=== PATIENT | male | born 1955 | race Caucasian/White ===

== ENCOUNTER 2017-09-06 12:06 | Inpatient (IN) | payer MEDICARE, MEDICAID ==
[~2017-09-06] VITALS: Ht 162.6 cm; Wt 91.2 kg
[2017-09-06 12:49] LABS: APPEARANCE CLEAR (CLEAR); BILIRUBIN NEGATIVE (NEGATIVE); COLOR YELLOW (YELLOW); GLUCOSE NEGATIVE (NEGATIVE); KETONE NEGATIVE (NEGATIVE); NITRITE NEGATIVE (NEGATIVE); PROTEIN NEGATIVE (NEGATIVE); SPECIFIC GRAVITY 1.015 (1.005-1.020); UROBILINOGEN NORMAL (NORMAL)
[2017-09-06 13:23] LABS: BASOPHILS 0.5 % (0-2); EOSINOPHILS 4.3 % (0-7); HEMATOCRIT 34.4 % (42.0-54.0); HEMOGLOBIN 11.6 g/dL (13.5-17.5); IMMATURE GRANULOCYTES 0.1 % (0-5); MCH 32.6 pg (26.0-34.0); MCHC 33.7 g/dL (31.0-37.0); MCV 96.6 fL (80.0-100.0); MEAN PLATELET VOLUME 10.3 fL (7.4-10.4); MONOCYTES 5.9 % (2-11); NEUTROPHILS 69.2 % (40-80); PLATELET COUNT 247 10x3/uL (130-400); RBC 3.56 10x6/uL (4.20-6.10); RDW 13.8 % (11.5-14.5); WBC 8.6 10x3/uL (4.8-10.8)
[2017-09-06 13:47] LABS: ALBUMIN 3.3 g/dL (3.4-5.0); ALKALINE PHOSPHATASE 46 U/L (46-116); ALT (SGPT) 25 U/L (10-68); BILIRUBIN - TOTAL 0.31 mg/dL (0.2-1.3); CALC OSMOLALITY 275 mosm/kg (275-300); CALCIUM 9.4 mg/dL (8.5-10.1); CARBON DIOXIDE 30.5 mmol/L (21.0-32.0); CHLORIDE - SERUM 100 mmol/L (98-107); CREATININE - SERUM 1.5 mg/dL (0.6-1.3); POTASSIUM - SERUM 3.9 mmol/L (3.5-5.1); SODIUM 136 mmol/L (136-145); UREA NITROGEN 28 mg/dL (7-18); eGFR NON AFRICAN AMERICAN 51 mL/min (90-120)
[2017-09-06 13:50] LABS: GLUCOSE 70 mg/dL (74-106)
[2017-09-06 13:52] LABS: AMYLASE - SERUM 113 U/L (25-115); LIPASE 756 U/L (73-393); TROPONIN-I < 0.017 ng/mL (0.000-0.060)
[2017-09-06] MEDS ORDERED: CIPRO500 MG PO (17:57)
[2017-09-06] MEDS ORDERED: ALDACTONE50 MG PO (17:58)
[2017-09-06] MEDS ORDERED: POT CHLORIDE TAB 20M PO (17:58)
[2017-09-06] MEDS ORDERED: LISINOPRIL2.5 MG PO (17:59)
[2017-09-06] MEDS ORDERED: TRICOR145 MG PO (17:59)
[2017-09-06] MEDS ORDERED: GLIMEPIRIDE 4 MG PO (17:59)
[2017-09-06] MEDS ORDERED: FUROSEMIDE40 MG PO (18:00)
[2017-09-06] MEDS ORDERED: ELAVIL25 MG PO (18:01)
[2017-09-06] MEDS ORDERED: BASAGLAR K100 UNIT/1 SC (18:01)
[2017-09-06 18:23] VITALS: BP 114/67; BMI 34.2
[2017-09-06 20:55] VITALS: BP 92/57
[2017-09-07 00:20] VITALS: BP 98/47
[2017-09-07 04:49] VITALS: BP 114/61
[2017-09-07 07:29] LABS: BASOPHILS 0.3 % (0-2); EOSINOPHILS 6.7 % (0-7); HEMATOCRIT 30.8 % (42.0-54.0); HEMOGLOBIN 10.3 g/dL (13.5-17.5); IMMATURE GRANULOCYTES 0.3 % (0-5); LYMPHOCYTES 26.4 % (15-50); MCH 32.2 pg (26.0-34.0); MCHC 33.4 g/dL (31.0-37.0); MCV 96.3 fL (80.0-100.0); MONOCYTES 6.6 % (2-11); NEUTROPHILS 59.7 % (40-80); PLATELET COUNT 233 10x3/uL (130-400)
[2017-09-07 07:31] LABS: WBC 6.3 10x3/uL (4.8-10.8)
[2017-09-07 07:50] LABS: ALBUMIN 2.8 g/dL (3.4-5.0); ANION GAP 9.8 mmol/L (8-16); BILIRUBIN - TOTAL 0.3 mg/dL (0.2-1.3); CALCIUM 8.8 mg/dL (8.5-10.1); CARBON DIOXIDE 30.2 mmol/L (21.0-32.0); CREATININE - SERUM 1.1 mg/dL (0.6-1.3); PROTEIN - SERUM 6.8 g/dL (6.4-8.2)
[2017-09-07 08:18] VITALS: BP 92/47
[2017-09-07 11:20] VITALS: BP 93/56
[2017-09-07 13:30] VITALS: Ht 162.6 cm; Wt 91.2 kg
[2017-09-07 15:09] VITALS: BP 95/48
[2017-09-07 20:00] VITALS: BP 95/54
[2017-09-08] VITALS: BP 90/45
[2017-09-08 04:00] VITALS: BP 98/56
[2017-09-08 06:45] LABS: BASOPHILS 0.6 % (0-2); EOSINOPHILS 7.3 % (0-7); HEMATOCRIT 31.3 % (42.0-54.0); HEMOGLOBIN 10.3 g/dL (13.5-17.5); IMMATURE GRANULOCYTES 0.2 % (0-5); LYMPHOCYTES 27.3 % (15-50); MCH 32.3 pg (26.0-34.0); MCHC 32.9 g/dL (31.0-37.0); MCV 98.1 fL (80.0-100.0); MEAN PLATELET VOLUME 9.8 fL (7.4-10.4); MONOCYTES 6.3 % (2-11); NEUTROPHILS 58.3 % (40-80); PLATELET COUNT 235 10x3/uL (130-400); RBC 3.19 10x6/uL (4.20-6.10); RDW 14.1 % (11.5-14.5); WBC 6.3 10x3/uL (4.8-10.8)
[2017-09-08 07:07] LABS: ALBUMIN 2.7 g/dL (3.4-5.0); BILIRUBIN - TOTAL 0.4 mg/dL (0.2-1.3); CALCIUM 8.8 mg/dL (8.5-10.1); CARBON DIOXIDE 30.4 mmol/L (21.0-32.0); CREATININE - SERUM 1.2 mg/dL (0.6-1.3); POTASSIUM - SERUM 4.4 mmol/L (3.5-5.1); PROTEIN - SERUM 6.7 g/dL (6.4-8.2)
[2017-09-08 08:36] VITALS: BP 107/48
[2017-09-08 11:34] VITALS: BP 106/57
[2017-09-08 15:42] VITALS: BP 107/51
== END 2017-09-08 17:19 | disposition home or self-care (01) | DRG 440 ==
LOC: D.ER 12:06 → D.EDHOLD 14:17 → D.M2 14:17 → OBSVTIME 14:17 → D.M2 15:45
PROVIDERS: Family Medicine
DX: K85.90 Acute pancreatitis without necrosis or infection, unspecified (principal); E78.00 Pure hypercholesterolemia, unspecified; E11.65 Type 2 diabetes mellitus with hyperglycemia; I10 Essential (primary) hypertension; F32.9 Major depressive disorder, single episode, unspecified